=== PATIENT | female | born 1955 | race Caucasian/White ===

== ENCOUNTER → 2019-05-02 | Outpatient (CLI) | payer OTHER ==
[~2019-05-02] MED LIST: IOPAMIDOL 300 MG/ML 15ML VIAL IT ONE; LIDOCAINE HCL 1% LOCAL INJ 20 ML VIAL ONE
[2019-05-02 09:11] LABS: INR 1.01; PROTHROMBIN TIME 13.9 seconds (11.9-14.5)
[2019-05-02 09:12] LABS: PARTIAL THROMBOPLASTIN TIME 30.9 seconds (23.8-35.5)
--- NOTE | 2019-05-02 10:58 | Diagnostic Imaging Report ---
Fluoroscopic-guided cervical myelogram. History: Neck and upper extremity pain. Medication: 5 cc of 1% lidocaine without epinephrine. Contrast: 10 cc of Isovue-300. EBL: < 1 ml. Specimen: None. Fluoro time: 0.4 min. Dose: 5.7 mGy ([facility]) Discussion: After informed consent was obtained, the patient's back was prepped and draped in a sterile fashion. The skin was anesthetized with 1% lidocaine without epinephrine. Using fluoroscopic guidance, a 22-gauge 3.5 inch spinal needle was advanced into the thecal sac at the level of L3/L4. Clear colorless CSF was obtained. The contrast was injected and the needle was removed. The table was then tilted head down until contrast was seen to flow to the cervical region. The patient was then sent to CT for scanning. The patient tolerated procedure well without evidence of immediate complication. Findings: [facility] films were obtained demonstrating anterior cervical fusion from C4 through C7 and mild degenerative changes are present throughout the lumbar spine. IMPRESSION: 1. Successful fluoroscopic guided cervical myelogram. 2. Please see CT of the cervical spine performed immediately after. Signed by: Cy Toro on 05/02/2019 10:56 AM
--- NOTE | 2019-05-02 12:22 | Diagnostic Imaging Report ---
History:Neck pain, cervical spondylosis Comparison studies: X-ray of the cervical spine 05/02/2019 Technique: Axial images were obtained from the thoracic inlet through the skull base. Coronal and sagittal images reconstructed from the axial data. Intrathecal contrast: See myelogram report. Dose modulation, iterative reconstruction, and/or weight based adjustment of the mA/kV was utilized to reduce the radiation dose to as low as reasonably achievable. Findings: Alignment: Straightening of the normal lordosis. No scoliosis. Atlantoaxial articulation: Intact Cervicomedullary junction: Suboccipital craniotomy changes with a small posterior fossa. The craniocervical junction is surrounded by CSF. Soft tissues: No gross soft tissue abnormalities. Spinal cord: Normal in size and contour. Anterior and intervertebral fusion from C4 through C7. Anterior plate and screws from C5 through C7 and intervertebral screws at C4-5 without perihardware lucency. Vertebrae: No fractures, infection or neoplasm . Degenerative changes: C2-3: Patent canal and foramina C3-4: Patent canal and foramina C4-5: Asymmetric right uncinate process results in mild canal stenosis and mild bilateral foraminal C5-6: Left uncinate process hypertrophy results in mild left foraminal narrowing without canal stenosis C6-7: Uncinate hypertrophy results in mild bilateral foraminal narrowing without canal stenosis C7-T1: Patent canal and foramina Impression: 1. Anterior and intervertebral fusion of the cervical spine from C4 through C7, without evidence of complication. 2. Degenerative changes more significant at C4-5 results in mild canal stenosis and mild bilateral foraminal narrowing. Other degenerative changes as described above 3. Suboccipital craniotomy changes with a small posterior fossa. Signed by: DR Josesito Pena M.D. on 05/02/2019 12:19 PM
== END ==
LOC: DX 08:36
PROVIDERS: ATTEND Neurological Surgery
DX: M47.812 Spondylosis without myelopathy or radiculopathy, cervical region (principal)
CPT/HCPCS: 36415; 62302; 72126; 85014; 85049; 85610; 85730; J2001; Q9967